=== PATIENT | female | born 1960 | race Caucasian/White ===

== ENCOUNTER 2023-05-28 21:27 | Emergency (ER) | payer BC ==
[~2023-05-28] VITALS: Ht 165.1 cm; Wt 85.0 kg
[2023-05-28 21:31] VITALS: BP 183/105; PULSE 66; RESP 16; TEMP 98.4; O2SAT 100
[2023-05-28] MEDS ORDERED: HYDR-3965 PO (23:16)
[2023-05-28] MEDS: aspirin 325mg tablet, delayed-release (Ecotrin) PO ONE (23:55)
[2023-05-28] MEDS: silver sulfadiazine cream 50gm TP ONE (23:55)
== END 2023-05-29 00:05 | disposition home or self-care (01) ==
LOC: ER 21:27
DX: T23.551A Corrosion of first degree of right palm, initial encounter (principal); T23.502A Corrosion of first degree of left hand, unspecified site, initial encounter; Z88.5 Allergy status to narcotic agent; Z88.6 Allergy status to analgesic agent
CPT/HCPCS: 16000; 99283; A6253; A6446; A6449